=== PATIENT | female | born 1985 | race African-American/Black ===

== ENCOUNTER 2022-12-26 20:05 | Emergency (ER) | payer MEDICAID ==
[~2022-12-26] VITALS: Ht 165.1 cm; Wt 79.4 kg
--- NOTE | 2022-12-26 20:25 | NUR ---
Patient placed in room 3A. Room is in close proximities to nursing station so patient can be monitored closely and frequently. Patient's belongings placed outside room and potential harmful objects placed outside patients room.
[2022-12-26] MEDS ORDERED: LURA40TA PO (20:27)
[2022-12-26] MEDS ORDERED: QUET200T PO (20:27)
[2022-12-26] MEDS ORDERED: haldol PO (20:27)
--- NOTE | 2022-12-26 20:27 | NUR ---
Dr. Short evaluating patient at bedside. MSE in progress.
--- NOTE | 2022-12-26 20:27 | NUR ---
Lab at bedside.
--- NOTE | 2022-12-26 20:38 | NUR ---
Patient aox3, ambulated to the bathroom independently. Tolerated well.
--- NOTE | 2022-12-26 20:43 | NUR ---
COVID swab and UA sent to lab
[2022-12-26] MEDS ORDERED: QUETIAPINE FUMARATE 25 MG TABLET ONE (20:44)
[2022-12-26] MEDS ORDERED: QUETIAPINE FUMARATE 200 MG TABLET ONE (20:44)
[2022-12-26 20:47] LABS: HEMATOCRIT 35.9 % (31.2-41.9); MEAN CORPUSCULAR HEMOGLOBIN 27.5 uug (24.7-32.8); MEAN CORPUSCULAR VOLUME 86.4 fL (75.5-95.3); PLATELET COUNT (AUTO) 352 K/uL (179-408)
[2022-12-26] MEDS: QUETIAPINE FUMARATE 25 MG TABLET PO ONE (20:48)
--- NOTE | 2022-12-26 20:51 | NUR ---
Patient sleeping and resting comfortably in bed.
--- NOTE | 2022-12-26 20:59 | NUR ---
Called [employer] Josemanuel requesting for sitter. Per Josemanuel, currently no sitter avaliable.
--- NOTE | 2022-12-26 21:00 | NUR ---
Offered patient food, patient refused at this time
[2022-12-26 21:04] LABS: CARBON DIOXIDE 30 mmol/L (21-32); CHLORIDE 105 mmol/L (98-107); CREATININE 0.9 mg/dL (0.6-1.3); GLUCOSE 129 mg/dL (74-106); POTASSIUM 3.9 mmol/L (3.5-5.1); UREA NITROGEN, BLOOD 14 mg/dL (7-18)
[2022-12-26 21:10] LABS: *CLARITY,URINE CLEAR (CLEAR); *COLOR,URINE YELLOW (YELLOW); *KETONES,URINE TRACE (NEGATIVE); LEUKOCYTE ESTERASE ,URINE NEGATIVE (NEGATIVE); NITRITE, URINE NEGATIVE (NEGATIVE); UGLUCOSE NEGATIVE (NEGATIVE)
[2022-12-26 21:12] LABS: *BILIRUBIN,URIN 1+ (NEGATIVE)
[2022-12-26 21:13] LABS: *BLOOD, URINE TRACE (NEGATIVE)
[2022-12-26 21:15] LABS: WBC,URINE 0-3 /HPF (0-3)
[2022-12-26 21:16] LABS: BACTERIA,URINE FEW /HPF (NONE SEEN); SQUAMOUS EPITHELIAL CELL,UR FEW /HPF (NONE SEEN)
[2022-12-26 21:17] LABS: *URINE HCG, QUAL NEGATIVE (NEGATIVE)
[2022-12-26 21:18] LABS: THYROID STIMULATING HORMONE 2.698 mIU/mL (0.358-3.740)
[2022-12-26 21:23] LABS: ACETAMINOPHEN < 2.0 ug/mL (10-30); ALANINE AMINOTRANSFERASE 23 U/L (14-59); ALKALINE PHOSPHATASE 66 U/L (50-136); ASPARTATE AMINOTRANSFERASE 19 U/L (15-37); BILIRUBIN,DIRECT 0.1 mg/dL (0.0-0.2); BILIRUBIN,TOTAL 0.2 mg/dL (0.2-1.0)
--- NOTE | 2022-12-26 22:03 | NUR ---
Patient calm and cooperative. Resting comfortably and sleeping in [place].
--- NOTE | 2022-12-26 23:41 | NUR ---
Patient continues to sleep comfortably in bed. No signs of distress.
[2022-12-27 00:50] LABS: ETHANOL < 3 MG/DL (0-0)
[2022-12-27 00:52] LABS: *AMPHETAMINE, URINE NEGATIVE (NEGATIVE); *CANNABINOID, URINE POSITIVE (NEGATIVE); *COCCAINE, URINE NEGATIVE (NEGATIVE); *PHENCYCLIDINE SCREEN,URINE NEGATIVE (NEGATIVE)
--- NOTE | 2022-12-27 03:00 | NUR ---
Patient sleeping comfortably in bed. No signs of distress.
--- NOTE | 2022-12-27 06:52 | NUR ---
Patient sleeping comfortably in bed. Patient remains calm and cooperative. No signs of distress.
--- NOTE | 2022-12-27 07:21 | NUR ---
Report given to Karly HENDERSON
--- NOTE | 2022-12-27 08:06 | NUR ---
Called [place] social services analyst with crisis team, and she stated she would be here at [phone] to evaluate the patient.
--- NOTE | 2022-12-27 09:20 | NUR ---
Followed up with nursing supervisor residential regarding sitter for patient who is on 5150, stated there is no available staff to watch the patient.
--- NOTE | 2022-12-27 10:02 | NUR ---
Social Work Consult requested for a 37 black female in the ER on a [employer] 5150 hold. The patient states she has bipolar disorder, schizophrenia, and is currently having suicidal and homicidal passive ideation. Patient states she is homeless and is open to going to a psych hospital. SHANNAN [facility] [place], [facility] and [place]. SHANNAN spoke with Jose R at [facility] and faxed him the patients facesheet and sent her clinical information to youth coordinatorZahra (fax: [phone]). SHANNAN informed charge nurse, Sarah.
[2022-12-27] MEDS ORDERED: OLANZAPINE 10 MG VIAL IM ONE (10:30)
--- NOTE | 2022-12-27 10:30 | NUR ---
Spoke with Tiffanie from [facility], stated that she will discuss with the weigher and charger to find out if there is an available bed for this patient.
[2022-12-27] MEDS: OLANZAPINE 10 MG VIAL IM ONE (10:35)
--- NOTE | 2022-12-27 10:36 | NUR ---
Zyprexia given at the L gluteal muscle.
--- NOTE | 2022-12-27 11:24 | NUR ---
Spoke with Norah from [facility]. Stated that Intake will call back with the bed information.
--- NOTE | 2022-12-27 11:51 | NUR ---
Spoke with Kay from [facility] who stated that there is an available bed for the patient. Stated that she needs the updated 5150 form.
--- NOTE | 2022-12-27 11:57 | NUR ---
Faxed over the updated 4675 form to [facility].
--- NOTE | 2022-12-27 12:13 | NUR ---
Spoke with Kay from [facility]. Patient will go to the [facility] room 7B. Accepting doctor is Dr. Levi. Number to give report ([phone])) Addendum: 12/27/22 at 1214 by DCRUZ to give report to
--- NOTE | 2022-12-27 12:26 | NUR ---
Gave report to SANTIAGO Borja
--- NOTE | 2022-12-27 12:30 | NUR ---
Set up transportation with Alex from [facility], stated ETA would be [phone]
--- NOTE | 2022-12-27 13:30 | NUR ---
Patient ate lunch. Ambulate with brisk steady gait. No acute distress noted at the moment.
--- NOTE | 2022-12-27 14:22 | NUR ---
Patient picked up by PRASHANTH to go to [facility] [place].
[2022-12-27 15:37] VITALS: BP 125/83
== END 2022-12-27 14:22 ==
LOC: ER 20:05
DX: F20.9 Schizophrenia, unspecified (principal); F31.5 Bipolar disorder, current episode depressed, severe, with psychotic features; R45.851 Suicidal ideations; Z59.00 Homelessness unspecified; Z88.0 Allergy status to penicillin; I25.2 Old myocardial infarction; Z20.822 Contact with and (suspected) exposure to COVID-19
CPT/HCPCS: 36415; 84443; 84703; 85025; A4663; G0480; J2358